=== PATIENT | female | born 1955 | race Caucasian/White ===

== ENCOUNTER → 2018-02-21 | Outpatient (CLI) | payer OTHER ==
[~2018-02-21] MED LIST: ASPIRIN EC81 M1 PO; HYDROCODON-ACE1 EAC8 PO; LISINOPRIL20 MG PO; MULTI VITAMIN1 EACH PO; SYNTHROID100 MCG PO; TUMS PO
== END ==
LOC: ULTRA 05:57
DX: B19.20 Unspecified viral hepatitis C without hepatic coma (principal); R10.9 Unspecified abdominal pain; R76.0 Raised antibody titer

== ENCOUNTER → 2020-08-30 | Outpatient (CLI) | payer OTHER | LOC: CAT 07:59 | PROVIDERS: ATTEND Family Medicine | DX: Z13.6 Encounter for screening for cardiovascular disorders (principal); I25.10 Atherosclerotic heart disease of native coronary artery without angina pectoris; E78.00 Pure hypercholesterolemia, unspecified ==

== ENCOUNTER 2021-04-22 07:52 | Emergency (ER) | payer BC ==
[~2021-04-22] VITALS: Ht 175.3 cm; Wt 62.6 kg
--- NOTE | 2021-04-22 08:44 | EKG ---
[place] [address] [facility] [place] [address] ELECTROCARDIOGRAM REPORT Name: MICHELE GIFFORD Room #: [facility] M.R.#: [id number] Admission: Attend Phys: Discharge: Date of : 59 Report #: [id number] [facility] ED Test Date: 2021-04-22 Test Time: 07:56:54 Pat Name: MICHELE GIFFORD Department: Room: Gender: F Heat Treater Head: : 1955 Requested By: Jesus Alberto Restrepo Order Number: [id number] MD: Christiano Morse Measurements Intervals [place] Rate: 70 P: 76 MO: 153 QRS: 40 QRSD: 99 T: 46 QT: 410 QTc: 443 Interpretive Statements Sinus rhythm Probable left atrial enlargement Abnormal R-wave progression, early transition Compared to ECG 10/13/2013 13:30:31 Incomplete right bundle-branch block no longer present Electronically Signed On 04-22-2021 8:44:33 CDT by Christiano Morse [email or web address] <ELECTRONICALLY SIGNED> By: Christiano Morse MD, [facility] 04/22/21 [id number] Christiano Morse MD, FACC /EPI
[2021-04-22 09:01] LABS: ABSOLUTE NEUTROPHILS 3.4 thou/uL (1.4-8.2); BASOPHILS 0.7 % (0.0-2.0); EOSINOPHILS 2.1 % (0.0-3.0); HEMATOCRIT 43.2 % (37.0-47.0); HEMOGLOBIN 14.4 gm/dL (12.0-15.0); LYMPHOCYTES 38.8 % (24.0-44.0); MCH 30.8 pg (26.0-34.0); MCHC 33.5 g/dL (28.0-37.0); MCV 92.1 fL (80.0-100.0); MONOCYTES 8.8 % (1.0-8.0); PLATELET COUNT 258 thou/uL (150-400); POLYS 49.6 % (36.0-66.0); RBC 4.69 mil/uL (4.20-5.00); RDW 12.4 % (10.5-14.5); WBC 6.9 thou/uL (4.0-11.0)
[2021-04-22 09:19] LABS: ANION GAP 9 mmol/L (7-16); APTT 25.2 Seconds (24.5-32.8); BUN 17 mg/dL (7-18); CALCIUM 9.3 mg/dL (8.5-10.1); CHLORIDE 104 mmol/L (98-107); CO2 29 mmol/L (21-32); CREATININE 0.9 mg/dL (0.6-1.0); GLUCOSE 90 mg/dL (74-106); INR 0.95; POTASSIUM 4.1 mmol/L (3.5-5.1); PROTIME 10.4 Seconds (10.5-12.1); SODIUM 142 mmol/L (136-145)
[2021-04-22 09:27] LABS: ALBUMIN 4.1 g/dL (3.4-5.0); AMYLASE 65 U/L (25-115); LIPASE 140 U/L (73-393); MAGNESIUM 2.3 mg/dL (1.8-2.4); SGOT 23 U/L (15-37); SGPT 33 U/L (14-59); TOTAL BILIRUBIN 0.6 mg/dL (0.2-1.0); TOTAL PROTEIN 7.7 g/dL (6.4-8.2); TROPONIN-I <0.06 ng/mL (<0.06)
[2021-04-22] MEDS ORDERED: NORCO5 PO (11:26)
[2021-04-22] MEDS ORDERED: FLEXERIL PO (11:26)
[2021-04-22 11:35] VITALS: BP 136/90
== END 2021-04-22 11:41 | disposition home or self-care (01) ==
LOC: ER 07:52
PROVIDERS: Emergency Medicine
DX: M54.6 Pain in thoracic spine (principal); M62.830 Muscle spasm of back; I10 Essential (primary) hypertension; E78.5 Hyperlipidemia, unspecified; E03.9 Hypothyroidism, unspecified; Z79.899 Other long term (current) drug therapy